=== PATIENT | female | born 1990 | race Caucasian/White ===

== ENCOUNTER 2017-05-22 14:50 | Emergency (ER) | payer OTHER ==
[~2017-05-22] VITALS: Ht 165.1 cm; Wt 113.4 kg
--- NOTE | ~2017-05-22 | EKG ---
[address] [address] ELECTROCARDIOGRAM REPORT Name: EDOUARD LYNN Room #: [facility]#: [id number] Admission: 05/22/17 Attend Phys: Discharge: 05/22/17 Date of : 88 Report #: [id number] THIS REPORT FOR: //name// [facility] ED Test Date: 2017-05-22 Test Time: 15:10:15 Pat Name: EDOUARD LYNN Department: Room: Gender: F Filer Helper: MZOOK : 1990 Requested By: Radha Wetzel Order Number: [id number] MD: Micky Hooper Measurements Intervals [place] Rate: 95 P: 52 VA: 152 QRS: 40 QRSD: 82 T: 4 QT: 338 QTc: 425 Interpretive Statements Sinus rhythm Probable left atrial enlargement No previous ECG available for comparison Electronically Signed On 05-22-2017 23:02:52 CDT by Micky Hooper [email or web address] <ELECTRONICALLY SIGNED> By: Micky Hooper MD 05/22/17 [id number] 1510 Micky Hooper MD /EVELIN
[~2017-05-22 14:50] MED LIST: ATIVAN0.5 MG PO; CLONAZEPAM 1 MG1 M1 PO; PAXIL10 MG PO; TRAMADOL 50 MG50 MG PO; XANAX1 MG PO; ZOLOFT25 MG PO
[2017-05-22 15:39] LABS: ABSOLUTE NEUTROPHILS 7.7 thou/uL (1.4-8.2); BASOPHILS 1.1 % (0.0-2.0); EOSINOPHILS 0.8 % (0.0-3.0); HEMATOCRIT 43.7 % (37.0-47.0); HEMOGLOBIN 14.6 gm/dL (12.0-15.0); LYMPHOCYTES 24.7 % (24.0-44.0); MCH 30.7 pg (26.0-34.0); MCHC 33.4 g/dL (28.0-37.0); MCV 91.8 fL (80.0-100.0); MONOCYTES 6.3 % (1.0-8.0); PLATELET COUNT 268 thou/uL (150-400); POLYS 67.1 % (36.0-66.0); RBC 4.76 mil/uL (4.20-5.00); RDW 13.4 % (10.5-14.5); WBC 11.5 thou/uL (4.0-11.0)
[2017-05-22 15:40] LABS: MANUAL DIFF NO
[2017-05-22 15:52] LABS: ANION GAP 10 mmol/L (7-16); BUN 5 mg/dL (7-18); CALCIUM 9.1 mg/dL (8.5-10.1); CHLORIDE 102 mmol/L (98-107); CO2 24 mmol/L (21-32); CREATININE 0.8 mg/dL (0.6-1.0); GLUCOSE 112 mg/dL (74-106); POTASSIUM 3.8 mmol/L (3.5-5.1); SODIUM 136 mmol/L (136-145)
[2017-05-22 15:59] LABS: ALKALINE PHOSPHATASE 89 U/L (46-116); SGOT 23 U/L (15-37); SGPT 33 U/L (30-65); TOTAL BILIRUBIN 0.4 mg/dL (<0.1-1.0); TOTAL PROTEIN 8.3 g/dL (6.4-8.2); TROPONIN-I < 0.04 ng/mL (<0.04-0.07)
[2017-05-22] MEDS ORDERED: ATIVAN1 MG PO (16:32)
[2017-05-22 17:34] VITALS: BP 142/87
== END 2017-05-22 15:09 | disposition home or self-care (01) ==
LOC: ER 14:50
PROVIDERS: Physician Assistant
DX: F41.9 Anxiety disorder, unspecified (principal); F43.10 Post-traumatic stress disorder, unspecified; F32.9 Major depressive disorder, single episode, unspecified; F17.210 Nicotine dependence, cigarettes, uncomplicated